=== PATIENT | male | born 1950 | race Caucasian/White ===

== ENCOUNTER → 2020-09-05 12:43 | Outpatient (CLI) | payer MEDICARE, OTHER, SELFPAY ==
--- NOTE | 2020-09-05 12:53 | DI.MRI.S_ITS ---
PROCEDURE: MR SHOULDER RT WO CON INDICATIONS: Strain of muscle, fascia and tendon of other parts TECHNIQUE: Noncontrast oblique coronal T2 fast spin echo with fat saturation, oblique sagittal T1 spin echo and T2 fast spin echo with fat saturation, axial T1 spin echo and T2 fast spin echo with fat saturation through the shoulder. COMPARISON: [facility] [place], CR, XR SHOULDER 2+ VIEWS RIGHT, 07/16/2020, 14:26. FINDINGS: Image quality: Excellent. Rotator cuff: There is high-grade partial bursal sided and intrasubstance tearing of the supraspinatus tendon at the posterior footprint. The infraspinatus and teres minor tendons are intact. There is attenuation of the subscapularis tendon at the superior insertion, compatible with chronic moderate grade partial articular sided tearing. There is no significant rotator cuff muscle atrophy. Bones and bursae: No acute trabecular bone injury. Chronic fracture deformity of the distal clavicle and acromioclavicular joint are noted with superimposed moderate acromioclavicular joint osteoarthrosis. There is mild degenerative spurring in the glenoid rim. Chronic small traction cystic changes are seen in the posterosuperior humeral head. A small subacromial/subdeltoid bursal effusion is present. Capsule and soft tissues: There is nondisplaced tearing of the superior to posterosuperior labrum. There is complete tearing of the proximal biceps long head tendon with distal retraction. The inferior glenohumeral ligament is normal in thickness. IMPRESSION: 1. High-grade partial bursal sided and intrasubstance tearing of the supraspinatus tendon at the posterior footprint. 2. 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 3. Complete tearing and distal retraction of the biceps long head tendon. 4. Nondisplaced tearing of the superior to posterosuperior labrum. 5. Chronic posttraumatic deformity of the distal clavicle. Moderate acromioclavicular joint osteoarthrosis. 6. Small subacromial/subdeltoid bursal effusion. Dictated by: Zuhair Sun M.D. on 09/07/2020 at 9:30 Approved by: Zuhair Sun M.D. on 09/07/2020 at 9:44
== END ==
PROVIDERS: PCP Nurse Practitioner Family; Referring Provider Orthopaedic Surgery; Visit Provider Orthopaedic Surgery
DX: S46.111A Strain of muscle, fascia and tendon of long head of biceps, right arm, initial encounter (principal); S46.011A Strain of muscle(s) and tendon(s) of the rotator cuff of right shoulder, initial encounter; M19.011 Primary osteoarthritis, right shoulder; M25.411 Effusion, right shoulder; X58.XXXA Exposure to other specified factors, initial encounter
CPT/HCPCS: 73221

== ENCOUNTER 2020-10-19 09:39 | Emergency (ER) | payer MEDICARE, OTHER, SELFPAY ==
[2020-10-19 09:49] VITALS: PULSE 81; O2SAT 99
[2020-10-19 09:51] VITALS: BP 116/68; PULSE 82; RESP 15; TEMP 36.4; O2SAT 99; BMI 32.6
--- NOTE | 2020-10-19 09:57 | DI.RAD.S_ITS ---
PROCEDURE: XR KNEE LT 3V INDICATIONS: pain TECHNIQUE: 3 views of the knee were acquired. COMPARISON: [facility] [place], CR, XR KNEE ARTHRITIC SERIES , 10/07/2020, 15:47. FINDINGS: Bones: No fractures or dislocations. No suspicious bony lesions. There is left T total arthroplasty with prosthesis in anatomic alignment. Calcific densities in the suprahilar area are seen. Soft tissues: No joint effusion. No suspicious soft tissue calcifications. IMPRESSION: 1. No acute osseous abnormalities. 2. Total knee arthroplasty with prosthesis in anatomic alignment. 3. Calcific densities in the suprapatellar area. Differential diagnosis include calcific bursitis versus intra-articular bodies. Dictated by: Niranjan Luo M.D. on 10/19/2020 at 10:20 Approved by: Niranjan Luo M.D. on 10/19/2020 at 10:22
--- NOTE | 2020-10-19 09:57 | DI.RAD.S_ITS ---
PROCEDURE: XR HIP W PEL IF DONE LT 2V INDICATIONS: pain TECHNIQUE: AP pelvis with lateral view(s) of the left hip(s). COMPARISON: None. FINDINGS: Bones: There is subtle cortical irregularity in the left femoral neck No dislocations. Pelvic ring appears intact. No suspicious bony lesions. Mild degenerative joint disease in hips and sacroiliac joints bilaterally. Degenerative disc and facet disease in the lower lumbar spine. Soft tissues: The visualized bowel gas pattern is normal. No suspicious soft tissue calcifications. IMPRESSION: Subtle cortical irregularity in the left femoral neck. Cannot rule out a nondisplaced fracture. If clinically indicated, CT or MRI may be helpful. Dictated by: Niranjan Luo M.D. on 10/19/2020 at 10:17 Approved by: Niranjan Luo M.D. on 10/19/2020 at 10:20
[2020-10-19 10:00] VITALS: PULSE 65; O2SAT 96
--- NOTE | 2020-10-19 10:02 | ED.LOWEXIN ---
HPI - Extremity Injury (Lower) General Chief Complaint: Extremity Injury, Lower Stated Complaint: left knee and hip hurting so bad, driving me crazy Time Seen by Provider: 10/19/20 09:44 Source: patient Mode of arrival: Ambulatory Limitations: no limitations History of Present Illness HPI Narrative: Patient is a 70-year-old male presents with left knee pain it has been there ongoing for about 1 month. He does not remember any specific injury. He has not taken anything for pain. It is painful in 1 particular area on the lateral side inferiorly. Knee does not feel unstable it does hurt to walk although he does not use or want a walker. He has no numbness tingling or weakness. No fever MD complaint: knee injury Onset (ago): month(s) (1) Review of Systems Review of Systems Narrative: GENERAL: Denies chills,fever HEENT: Denies throat pain RESPIRATORY: Denies dyspnea, cough, wheezing CARDIOVASCULAR: Denies chest pain, palpitations GASTROINTESTINAL: Denies nausea, vomiting MUSCULOSKELETAL: See HPI SKIN: No rash, no laceration, no pruritus NEUROLOGIC: Denies weakness, dizziness, headache, numbness 8 point review of systems is negative except for those stated above and HPI Patient History Medical History (Updated 10/19/20 @ 11:01 by Regina Edward DO) Diabetes Hyperlipidemia Hypertension Mesenteric thrombosis Social History Smoking Status: Current every day smoker Smoking Status: Current every day smoker alcohol intake frequency: 0-2 drinks per day Substance Use Type: does not use Exam Initial Vital Signs Initial Vital Signs: Vital Signs Pulse Rate 81 10/19/20 09:49 Pulse Oximetry 99 10/19/20 09:49 GENERAL: Alert pleasant 70-year-old male CARDIOVASCULAR: peripheral pulses in tact, cap refill <2 sec RESPIRATORY: No respiratory distress, speaks in full sentences without difficulty EXTREMITIES: Normal range of motion, no clubbing or edema. Neurovascularly intact Left lower extremity knee is stable very minimal swelling tender pinpoint inferior and lateral. No erythema distal pedal pulse is felt NEUROLOGICAL: Cranial nerves II through XII grossly intact. Normal gait and speech. SKIN: Warm, dry, no petechiae, no rashes or lesions. Course Orders Ordered: ED Orders 10/19/20 09:57 XR hip w pel if done LT 2V Stat XR knee LT 3V Stat Vital Signs Vital signs: Vital Signs - 8 hr 10/19/20 09:49 10/19/20 09:51 Temperature 97.5 F L Pulse Rate 81 82 Respiratory Rate 15 Blood Pressure 116/68 Pulse Oximetry 99 99 MDM - Extremity Injury (Lower) Imaging Data Extremity x-ray #1: Radiologist's Impression: PROCEDURE: XR KNEE LT 3V INDICATIONS: pain TECHNIQUE: 3 views of the knee were acquired. COMPARISON: [facility] [place], CR, XR KNEE ARTHRITIC SERIES , 10/07/2020, 15:47. FINDINGS: Bones: No fractures or dislocations. No suspicious bony lesions. There is left T total arthroplasty with prosthesis in anatomic alignment. Calcific densities in the suprahilar area are seen. Soft tissues: No joint effusion. No suspicious soft tissue calcifications. IMPRESSION: 1. No acute osseous abnormalities. 2. Total knee arthroplasty with prosthesis in anatomic alignment. 3. Calcific densities in the suprapatellar area. Differential diagnosis include calcific bursitis versus intra-articular bodies. Dictated by: Niranjan Luo M.D. on 10/19/2020 at 10:20 Approved by: Niranjan Luo M.D. on 10/19/2020 at 10:22 Extremity x-ray #2: Radiologist's Impression: PROCEDURE: XR HIP W PEL IF DONE LT 2V INDICATIONS: pain TECHNIQUE: AP pelvis with lateral view(s) of the left hip(s). COMPARISON: None. FINDINGS: Bones: There is subtle cortical irregularity in the left femoral neck No dislocations. Pelvic ring appears intact. No suspicious bony lesions. Mild degenerative joint disease in hips and sacroiliac joints bilaterally. Degenerative disc and facet disease in the lower lumbar spine. Soft tissues: The visualized bowel gas pattern is normal. No suspicious soft tissue calcifications. IMPRESSION: Subtle cortical irregularity in the left femoral neck. Cannot rule out a nondisplaced fracture. If clinically indicated, CT or MRI may be helpful. Dictated by: Niranjan Luo M.D. on 10/19/2020 at 10:17 MDM Narrative Medical decision making narrative: Patient has been having ongoing pain for 1 month. He is able to ambulate. There is very minimal swelling pain is pinpoint x-rays are negative. Recommend outpatient follow-up. No concern for septic joint at this time. Discharge Plan Departure Patient Disposition: Home Clinical Impression: Left knee sprain Qualifiers: Encounter type: initial encounter Involved ligament of knee: other ligament Qualified Code(s): S83.8X2A - Sprain of other specified parts of left knee, initial encounter Instructions: DI for Knee Sprain Activity Restrictions/Additional Instructions: *You have been diagnosed with left knee sprain *What to do: Increase activity as tolerated. Recommend using a cane or walking assistance device if needed. Use a knee brace also if needed *Continue to take medications as directed Tylenol 650 mg every 4-6 hours needed for [id number] pain *Follow up with your primary care provider in 2-3 days Follow-up with orthopedics as scheduled feel like he needs to be seen sooner please call *Return to ER if you should have increasing pain weakness redness, or fever or any new, worsening or concerning symptoms Referrals: Cassidy Burden ARNP [Primary Care Provider] - Nichole Ag MD [Physician] -
[2020-10-19 10:30] VITALS: PULSE 64; O2SAT 98
== END 2020-10-19 11:03 | disposition home or self-care (01) ==
PROVIDERS: Emergency Provider Emergency Medicine; PCP Nurse Practitioner Family
DX: S83.8X2A Sprain of other specified parts of left knee, initial encounter (principal); M25.552 Pain in left hip
CPT/HCPCS: 73502; 73562; 99283; 99284